=== PATIENT | female | born 1960 | race Two or more races ===

== ENCOUNTER 2021-03-15 12:29 | Outpatient (CLI) | payer OTHER | END 2021-03-15 12:46 | disposition home or self-care (01) | LOC: SONOGRAMA 12:29 → MAMO-SONO 15:15 | DX: E03.9 Hypothyroidism, unspecified (principal) ==

== ENCOUNTER 2021-03-25 07:41 | Outpatient (CLI) | payer OTHER | END 2021-03-25 07:50 | disposition home or self-care (01) | LOC: MRI 07:41 | DX: M54.2 Cervicalgia (principal); M54.5 Low back pain; M54.6 Pain in thoracic spine | CPT/HCPCS: 72141 ==